=== PATIENT | male | born 1950 | race Caucasian/White ===

== ENCOUNTER 2016-06-16 08:14 | Day surgery (SDC) | payer OTHER ==
[2016-06-13 15:13] VITALS: BMI 28.1
[2016-06-16] MEDS ORDERED: PROPOFOL 20 ML ONE ×5 (09:38)
[2016-06-16] MEDS ORDERED: LIDOCAINE HCL/PF 2% SDV 5ML VIAL ONE (09:38)
[2016-06-16 10:44] VITALS: TEMP 97.5
[2016-06-16 11:52] VITALS: PULSE 58
[2016-06-16 12:09] VITALS: BP 116/58
== END 2016-06-16 12:08 | disposition home or self-care (01) ==
LOC: JASU-ENDO 08:14
PROVIDERS: ATTEND Internal Medicine Gastroenterology
PROC: 0DB68ZX Excision of Stomach, Via Natural or Artificial Opening Endoscopic, Diagnostic (ICD-10-PCS; principal; 2016-06-16 09:30)
DX: K29.00 Acute gastritis without bleeding (principal); K44.9 Diaphragmatic hernia without obstruction or gangrene
CPT/HCPCS: 88305-TC; 88342-TC

== ENCOUNTER 2017-01-19 10:54 | Day surgery (SDC) | payer OTHER ==
[2017-01-19 11:19] LABS: MCH 27.8 pg (25.7-33.7); MCHC 32.8 g/dl (32.0-35.9); MEAN CELL VOLUME 84.7 fl (80-96); MEAN PLT VOLUME 9.7 fl (7.5-11.1); PLATELET COUNT 65 K/MM3 (134-434); RDW 15.8 % (11.9-15.9); WHITE BLOOD COUNT 5.6 K/mm3 (4.0-10.0)
[2017-01-19 11:45] VITALS: BMI 28.4
[2017-01-19 11:51] LABS: ANION GAP 4 (8-16); CALCIUM 8.9 mg/dL (8.5-10.1); CO2 28 mmol/L (21-32); CREATININE 1.3 mg/dL (0.7-1.3); GLUCOSE,RANDOM 94 mg/dL (74-106)
[2017-01-19 11:53] LABS: INR 1.56 (0.82-1.09); PROTHROMBIN TIME (PATIENT) 17.6 SEC (9.98-11.88)
[2017-01-19 11:56] LABS: ACTIVATED PTT 33.8 SECONDS (26.9-34.4)
[2017-01-19] MEDS ORDERED: ETOMIDATE 20 MG/10 ML AMPUL IVPUSH ONE (12:55)
[2017-01-19] MEDS ORDERED: LIDOCAINE HCL/PF 2% SDV 5ML VIAL ONE (12:55)
[2017-01-19 13:30] VITALS: TEMP 98.5
[2017-01-19 14:20] VITALS: BP 114/75; PULSE 72
--- NOTE | 2017-01-19 14:48 | EKG ---
Test Reason : Blood Pressure : / mmHG Vent. Rate : 070 BPM Atrial Rate : 070 BPM P-R Int : 186 ms QRS Dur : 152 ms QT Int : 458 ms P-R-T Axes : 017 -79 090 degrees QTc Int : 494 ms AV dual-paced rhythm Biventricular pacemaker detected ABNORMAL ECG NO PREVIOUS ECGS AVAILABLE Confirmed by RAVEN QURESHI MD ([id number]) on 01/19/2017 2:47:32 PM Referred By: RAVEN QURESHI Confirmed By:RAVEN QURESHI MD
== END 2017-01-19 14:20 | disposition home or self-care (01) ==
LOC: JASU-ENDO 10:54
PROVIDERS: ATTEND Internal Medicine Cardiovascular Disease
PROC: 5A2204Z Restoration of Cardiac Rhythm, Single (ICD-10-PCS; principal; 2017-01-19 13:00)
DX: I48.91 Unspecified atrial fibrillation (principal)
CPT/HCPCS: 36415; 80048; 85027; 85610; 85730; 92960; 93005; 93010

== ENCOUNTER 2019-02-23 06:30 | Day surgery (SDC) | payer OTHER, MEDICARE ==
[2019-02-22 15:42] VITALS: BMI 27.6
[2019-02-23] MEDS ORDERED: LIDOCAINE HCL 1%, 10 MG/ML (20ML VIAL) ONE (07:11)
[2019-02-23] MEDS ORDERED: SUCCINYLCHOLINE CHLORIDE 200 MG/10 ML SYRINGE ONE (07:24)
[2019-02-23] MEDS ORDERED: PROPOFOL 20 ML ONE (07:24)
[2019-02-23] MEDS ORDERED: MIDAZOLAM HCL 2 MG/2 ML SINGLE DOSE VIAL ONE (07:24)
[2019-02-23] MEDS ORDERED: ceFAZolin 2 GRAM PREMIX BAG IVPB ONE (08:16)
[2019-02-23] MEDS ORDERED: ceFAZolin SODIUM 1 GM VIAL ONE (08:17)
[2019-02-23] MEDS ORDERED: LIDOCAINE HCL 1%, 10 MG/ML (20ML VIAL) NR ONE (08:22)
[2019-02-23] MEDS ORDERED: BUPIVACAINE HCL/PF 0.5% (5 MG/ML) 30 ML VIAL IJ ONE (08:22)
--- NOTE | 2019-02-23 08:51 | OP ---
Operative Note - Note: Operative Date: 02/23/19 Pre-Operative Diagnosis: left middle trigger finger Operation: left middle finger trigger finger release, tendon sheath excision Post-Operative Diagnosis: Same as Pre-op Surgeon: Luiz Munson Anesthesiologist/ANATOMY TEACHER: Senthil Granger Anesthesia: Local, MAC Specimens Removed: tendon sheath Estimated Blood Loss (mls): 0 Drains, Volume Out (mls): 0 Blood Volume Replaced (mls): 0 Fluid Volume Replaced (mls): 500 Operative Report Dictated: Yes
[2019-02-23 10:21] VITALS: BP 102/62; PULSE 70; TEMP 97.5
[2019-02-23] MEDS ORDERED: oxyCODONE HCL 5 MG TABLET PO PRN ×2 (11:52)
[2019-02-23] MEDS ORDERED: ONDANSETRON 4 MG/2 ML VIAL IVPUSH PRN (11:52)
[2019-02-23] MEDS ORDERED: LACTATED RINGERS SOLUTION 1,000 ML IV SCH (12:00)
--- NOTE | 2019-02-23 16:03 | SPEC ---
DATE OF OPERATION: 02/23/2019 PREOPERATIVE DIAGNOSIS: Left middle finger trigger finger. POSTOPERATIVE DIAGNOSIS: Left middle finger trigger finger. PROCEDURE: Left middle finger trigger finger release and tendon sheath excision. SURGEON: Jack Mahmood MD ASSISTANTS: None. DIGITAL FORENSICS EXAMINER: Senthil Granger CRNA ANESTHESIA: MAC anesthesia with local injection of 10 mL of 0.5% Marcaine and 1% lidocaine mix. DRAINS: None. COMPLICATIONS: None. SPECIMEN: Tenosynovium, left hand. BLOOD LOSS: None. BLOOD GIVEN: None. FLUID REPLACEMENT: 500 mL. INDICATIONS: This patient is a 68-year-old male with a preoperative diagnosis of a recurrent, painful left middle finger trigger finger. After understanding the potential risks, complications, alternatives, and benefits of surgery versus non-surgical treatment, the patient elected to undergo this procedure. PROCEDURE: The patient was brought to the operating room, IV was placed, IV sedation was given. One gram of intravenous Ancef given. A tourniquet was applied to the left upper arm and the left upper extremity was prepped and draped in sterile fashion. The entire case was done under 3.8-loupe magnification. A marking pen was utilized to romero out a longitudinal incision in an already existing skin crease at the base of the left middle finger. Then, 10 mL of 0.5% Marcaine mixed with 1% lidocaine was injected in and around the incision. The left upper extremity was elevated, exsanguinated with an Esmarch bandage and the tourniquet inflated to 250 mmHg. A No. 15 scalpel blade was utilized to cut down through the skin. Subcutaneous hemostasis was achieved with the bipolar cautery. Additional dissection was done with Littler scissors, until I was able to directly visualize the A1 ba sheath in its entirety. Self-retaining retractors were placed into the wound. A [place] elevator was used to free up the tissue on the radial side, the ulnar side distally and proximally under better visualization of A1 ba sheath. Next, using a fresh No. 15 scalpel blade, I excised the central one-third of the A1 ba sheath and passed it off the field as specimen, tendon sheath, left middle finger. I then completed the release, both distally and proximally, and brought the FDS and FDP tendons out through the wound with a Ragnell retractor. There were no abnormal points of compression. I was able to move the left middle finger without the tendons bunching up at all. The area was then copiously irrigated and washed out. I then checked one more time to make sure there were no abnormal points of compression. None were seen and therefore closure was begun. One stitch using 4-0 Vicryl was used in the deep dermal layer. Skin was reapproximated with 4-0 nylon sutures in a horizontal mattress fashion. The area was then washed and dried, covered with Xeroform gauze, sterile 4 x 4s, fluffs between the fingers, Webril and Coban. The tourniquet was taken down after a total tourniquet time of 18 minutes. There were no complications during the case. The patient tolerated the procedure well and was brought to the Ambulatory Recovery Room in stable condition. JACK MAHMOOD M.D. [id number]
--- NOTE | 2019-02-24 11:45 | PATH ---
Surgical Pathology Report Patient Name: HOMERO GARCIA [facility]. Rec. #: [id number] /Age/Gender: 1950 (Age: 68) / M Account: [id number] Location: [facility] Taken: 02/23/2019 Received: 02/23/2019 Reported: 02/24/2019 Physicians: Luiz Munson M.D. Specimen(s) Received TENDON SHEATH Clinical History Left middle trigger finger Final Diagnosis SOFT TISSUE, LEFT MIDDLE FINGER, EXCISION: TENOSYNOVIUM WITH ATTACHED DENSE ORGANIZED FIBROUS CONNECTIVE TISSUE. Electronically Signed Juan Ryder M.D. Gross Description Received in formalin labeled "tendon sheath," is a 0.4 x 0.3 x 0.1 cm grande portion of fibrous tissue, consistent with a tendon sheath. The specimen is submitted in toto in one cassette. DL/02/23/2019 saudi/02/23/2019
== END 2019-02-23 10:55 | disposition home or self-care (01) ==
LOC: JASU-SURG 06:30
PROVIDERS: ATTEND Orthopaedic Surgery
PROC: 0LN80ZZ Release Left Hand Tendon, Open Approach (ICD-10-PCS; principal; 2019-02-23 08:00)
DX: M65.332 Trigger finger, left middle finger (principal)